=== PATIENT | male | born 2000 | race Caucasian/White ===

== ENCOUNTER 2022-02-04 18:16 | Emergency (ER) | payer OTHER ==
[~2022-02-04 18:16] MED LIST: LORTAB 5-325 M1 EACH PO
[2022-02-04] MEDS ORDERED: IBUPROFEN600 MG PO (20:58)
== END 2022-02-04 21:24 | disposition home or self-care (01) ==
LOC: ER1 18:16
DX: S80.11XA Contusion of right lower leg, initial encounter (principal); M54.2 Cervicalgia; R10.9 Unspecified abdominal pain; V43.52XA Car driver injured in collision with other type car in traffic accident, initial encounter
CPT/HCPCS: 73552; 73564; 73590; 99284